=== PATIENT | female | born 1955 | race Caucasian/White ===

== ENCOUNTER 2018-08-06 09:52 | Emergency (ER) | payer OTHER ==
--- NOTE | 2018-08-06 10:23 | ED ---
General Adult HPI - General Chief complaint: Extremity Injury, Upper Stated complaint: Arm/shoulder injury-[facility] Time Seen by Provider: 08/06/18 10:06 Source: family, RN notes reviewed Mode of arrival: ambulatory Limitations: no limitations - History of Present Illness Initial comments: Patient is a 63-year-old female presented to the emergency room today with chief complaint of injury to the right shoulder that occurred earlier today. She does admit that she is getting a box of aspirin. From the shelf at work she felt a pop in the right shoulder. 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 She just felt that she was able to pop back in. She does admit that after she did that she felt some numbness to the volar aspect of the right forearm down to the fingertips. States feels like it is asleep. She does admit that she continued to work. She states that her work and wanted her to have it checked out she did go to urgent care. They did not have x-ray available and advised to come here to the emergency room for further evaluation of the right shoulder. Patient doesn't some tenderness to the right shoulder that is worse on palpation and certain movements. She denies any other complaints or symptoms. Patient denies any recent fever, chills, shortness of breath, chest pain, back pain, abdominal pain, nausea or vomiting, headaches or visual changes, or any other complaints. - Related Data Home Medications Medication Instructions Recorded Confirmed No Known Home Medications 08/06/18 08/06/18 Allergies Allergy/AdvReac Type Severity Reaction Status Date / Time Penicillins Allergy Anaphylaxis Verified 08/06/18 10:12 Review of Systems ROS Statement: Those systems with pertinent positive or pertinent negative responses have been documented in the HPI. ROS Other: All systems not noted in ROS Statement are negative. Past Medical History Past Medical History: Asthma History of Any Multi-Drug Resistant Organisms: None Reported Past Surgical History: Appendectomy, Cholecystectomy Additional Past Surgical History / Comment(s): Sinus, Throat Past Psychological History: No Psychological Hx Reported Smoking Status: Never smoker Past Alcohol Use History: None Reported Past Drug Use History: None Reported General Exam - General Exam Comments Initial Comments: General: The patient is awake and alert, in no distress, and does not appear acutely ill. Eye: There is normal conjunctiva bilaterally. No signs of icterus. Neck: The neck is supple, there is no tenderness or JVD. Musculoskeletal: Patient does have tenderness over the anterior aspect of the right shoulder. Sensations are intact to light touch. She does show good range of motion. She is able to touch the left shoulder with her right hand. Radial pulse 2+. Neurological: A&O x 3. CN II-XII intact, There are no obvious motor or sensory deficits. Coordination appears grossly intact. Speech is normal. Skin: Skin is warm and dry and no rashes or lesions are noted. Psychiatric: Cooperative, appropriate mood & affect, normal judgment. Limitations: no limitations Course Vital Signs 08/06/18 10:01 Temperature 97.6 F Pulse Rate 71 Respiratory 20 Rate Blood Pressure 125/65 O2 Sat by Pulse 99 Oximetry Medical Decision Making - Medical Decision Making X-ray reviewed and shows no dislocation or fracture. There is osteoarthritis around the acromioclavicular joint. Results were discussed with the patient. She has good range of motion. She does have some numbness sensation to the volar aspect. It is intact to light touch. She will be given an arm sling here in the emergency room she is advised follow-up with the orthopedic doctor over the next 2 days. Advised return here to the emergency room for any other concerns. Disposition Clinical Impression: Shoulder injury Disposition: HOME SELF-CARE Condition: Good Instructions (If sedation given, give patient instructions): Shoulder Dislocation (ED) Additional Instructions: Please use arm sling when up and moving around. Please use ibuprofen for pain. Please follow-up orthopedics over the next 2 days. Return here to emergency room for any other concerns. Is patient prescribed a controlled substance at d/c from ED?: No Referrals: Marquez Jesus MD [Primary Care Provider] - 1-2 days Barron Singh DO [Doctor of Osteopathic Medicine] - 1-2 days Time of Disposition: 11:18
--- NOTE | 2018-08-06 10:30 | XR ---
EXAMINATION TYPE: XR shoulder complete RT DATE OF EXAM: 08/06/2018 COMPARISON: NONE HISTORY: 63-year-old female with pain TECHNIQUE: 3 views FINDINGS: Mild degenerative spurring with capsular hypertrophy at the AC joint. Subacromial space is preserved. No tendinous or bursal calcifications. Smooth delineation to the greater tuberosity. No acute fractu re, subluxation, or dislocation. IMPRESSION: Mild AC joint OA. No acute osseous abnormality seen.
[2018-08-06 12:01] VITALS: BP 120/60; PULSE 70; RESP 18; TEMP 97.9
== END 2018-08-06 11:50 | disposition home or self-care (01) ==
LOC: EC 09:52
DX: S49.91XA Unspecified injury of right shoulder and upper arm, initial encounter (principal); M19.011 Primary osteoarthritis, right shoulder; Z88.0 Allergy status to penicillin; X50.9XXA Other and unspecified overexertion or strenuous movements or postures, initial encounter; Y92.69 Other specified industrial and construction area as the place of occurrence of the external cause; Y99.0 Civilian activity done for income or pay
CPT/HCPCS: 99283

== ENCOUNTER → 2018-08-16 | Outpatient (CLI) | payer OTHER ==
--- NOTE | 2018-08-16 21:42 | MR ---
EXAMINATION TYPE: MR shoulder RT wo con DATE OF EXAM: 08/16/2018 COMPARISON: None HISTORY: Rt shoulder pain, lifting injury CONTRAST: None Multiplanar, multiecho imaging on a 3.0 Nitza magnet is performed through the shoulder. Long head of the biceps tendon is within the bicipital groove. No significant joint effusion is evide nt. Glenoid labrum appears intact. Rotator cuff tendons are evaluated. There is fluid in subacromial and subdeltoid bursa. Fluid transv erses the supraspinatus tendon compatible with partial tear. No muscle or tendon retraction is eviden t. No muscle atrophy is evident. The acromioclavicular junction is hypertrophied which can contribute to impingement syndrome. IMPRESSIONS: 1. High-grade partial tear of the supraspinatus tendon without tendon or muscle retraction.
== END | disposition home or self-care (01) ==
LOC: RADMRIMAIN 20:09
PROVIDERS: ATTEND Emergency Medicine
DX: M75.111 Incomplete rotator cuff tear or rupture of right shoulder, not specified as traumatic (principal)

== ENCOUNTER → 2020-01-02 | Outpatient (CLI) | payer BC ==
--- NOTE | 2020-01-02 13:01 | CT ---
EXAMINATION TYPE: CT brain wo con DATE OF EXAM: 01/02/2020 HISTORY: Dizziness. CT DLP: 1177 mGycm. Automated Exposure Control for Dose Reduction was Utilized. TECHNIQUE: CT scan of the head is performed without contrast. COMPARISON: None FINDINGS: There is no acute intracranial hemorrhage, midline shift, or mass effect identified. There is beam monroy rdening artifact through the skull base Limited evaluation of the moni and medulla. The ventricles, sulci, and cisterns are normal in size and configuration. No extra-axial fluid collection. Bones and extracranial soft tissues are intact. The globes are gross ly symmetric. Mastoid air cells are clear. Mucosal thickening and surgical changes of the paranasal s inuses. IMPRESSION: No acute intracranial hemorrhage, midline shift, or mass effect.
== END | disposition home or self-care (01) ==
LOC: RADCTMAIN 11:53
PROVIDERS: ATTEND Nurse Practitioner Family
DX: R42 Dizziness and giddiness (principal)
CPT/HCPCS: 70450

== ENCOUNTER 2020-06-30 08:02 | Emergency (ER) | payer BC ==
[2020-06-30] MEDS ORDERED: ACETAMINOPHEN TAB 325 MG TAB PO STA (08:39)
[2020-06-30 09:06] LABS: Basophils % (A) 1 %; Eosinophils % (A) 1 %; HCT 37.4 % (34.0-46.0); HGB 12.6 gm/dL (11.4-16.0); Lymphocytes # (A) 0.5 k/uL (1.0-4.8); Lymphocytes % (A) 18 %; MCH 30.8 pg (25.0-35.0); MCHC 33.7 g/dL (31.0-37.0); MCV 91.5 fL (80.0-100.0); Mean Platelet Volume 7.8; Monocytes # (A) 0.2 k/uL (0-1.0); Monocytes % (A) 8 %; Neutrophils # (A) 1.8 k/uL (1.3-7.7); Neutrophils % (A) 71 %; Platelet Count 135 k/uL (150-450); RBC 4.09 m/uL (3.80-5.40); WBC 2.5 k/uL (3.8-10.6)
[2020-06-30 09:13] LABS: ALT 17 U/L (4-34); AST 30 U/L (14-36); African American GFR (CKD) >90 (>60 ml/min/1.73 sqM); Albumin 3.4 g/dL (3.5-5.0); Alkaline Phosphatase 56 U/L (38-126); Anion Gap 8 mmol/L; Blood Urea Nitrogen 11 mg/dL (7-17); Carbon Dioxide 26 mmol/L (22-30); Chloride 102 mmol/L (98-107); Glucose 122 mg/dL (74-99); Magnesium 1.8 mg/dL (1.6-2.3); Non-African American GFR(CKD) >90 (>60 ml/min/1.73 sqM); Potassium 3.6 mmol/L (3.5-5.1); Sodium 136 mmol/L (137-145); Total Bilirubin 0.2 mg/dL (0.2-1.3)
--- NOTE | 2020-06-30 09:15 | XR ---
EXAMINATION TYPE: XR chest 1V portable DATE OF EXAM: 06/30/2020 HISTORY: Shortness of breath. COMPARISON: None. TECHNIQUE: Single view of the chest is submitted. FINDINGS: Demonstrated are scattered senescent parenchymal change. Vague perihilar and basilar infiltrates suggested. The heart is stable. Hilar and mediastinal structures are within normal limits. Degenerative changes are seen of the dorsal spine. IMPRESSION: 1. Vague perihilar and basilar infiltrates suggested.
--- NOTE | 2020-06-30 09:17 | ED ---
General Adult HPI - General Chief complaint: Fever Stated complaint: possible covid Time Seen by Provider: 06/30/20 08:18 Source: patient Mode of arrival: wheelchair Limitations: no limitations - History of Present Illness Initial comments: 55-year-old female with a past medical history of asthma presents to the emergency room for a chief complaint of cough. Patient reports that for the past 5 days she has had a cough as well as body aches and chills. She does feel little short of breath. Denies chest pain. Patient reports that her tested positive for covid in the ER yesterday and got antibodies through the ER. Patient states she would like to be tested today as well.Patient has no other complaints at this time including chest pain, abdominal pain, nausea or vomiting, headache, or visual changes. - Related Data Home Medications Medication Instructions Recorded Confirmed No Known Home Medications 08/06/18 08/06/18 Allergies Allergy/AdvReac Type Severity Reaction Status Date / Time Penicillins Allergy Anaphylaxis Verified 06/30/20 08:13 Review of Systems ROS Statement: Those systems with pertinent positive or pertinent negative responses have been documented in the HPI. ROS Other: All systems not noted in ROS Statement are negative. Past Medical History Past Medical History: Asthma History of Any Multi-Drug Resistant Organisms: None Reported Past Surgical History: Appendectomy, Cholecystectomy Additional Past Surgical History / Comment(s): Sinus, Throat Past Psychological History: No Psychological Hx Reported Smoking Status: Never smoker Past Alcohol Use History: None Reported Past Drug Use History: None Reported General Exam Limitations: no limitations General appearance: alert, in no apparent distress Head exam: Present: atraumatic, normocephalic, normal inspection Eye exam: Present: normal appearance, PERRL, EOMI. Absent: scleral icterus, conjunctival injection, periorbital swelling ENT exam: Present: normal exam, mucous membranes moist Neck exam: Present: normal inspection, full ROM. Absent: tenderness, meningismus, lymphadenopathy Respiratory exam: Present: normal lung sounds bilaterally. Absent: respiratory distress, wheezes, rales, rhonchi, stridor Cardiovascular Exam: Present: regular rate, normal rhythm, normal heart sounds. Absent: systolic murmur, diastolic murmur, rubs, gallop, clicks GI/Abdominal exam: Present: soft, normal bowel sounds. Absent: distended, tenderness, guarding, rebound, rigid Course Vital Signs 06/30/20 06/30/20 06/30/20 08:11 09:14 10:03 Temperature 100.0 F H 98.5 F Pulse Rate 97 89 78 Respiratory 20 20 20 Rate Blood Pressure 98/62 80/67 96/56 O2 Sat by Pulse 94 L 94 L 90 L Oximetry EKG Findings - EKG Comments: EKG Findings:: Normal sinus rhythm, ventricular rate 75, HI interval 160, QTC 439 Medical Decision Making - Medical Decision Making Patient initially presents with a fever of 100.0. Oxygenation initially 94% which did decrease throughout her stay down to the high 80s. Blood pressure has also been low in the low 80s. This did improve after a liter and a half of fluid to 90s. CBC CMP unremarkable. CRP is sightly elevated likely secondary to coronavirus. Chest x-ray does show vague perihilar and basilar infiltrate suggestive. EKG shows a normal sinus rhythm with a ventricular rate of 75. Given hypoxia as well as hypotension patient will be admitted with steroids. Dr. Del Cid spoke with Dr. Elias. - Lab Data Result diagrams: 06/30/20 08:52 06/30/20 08:52 Lab Results 06/30/20 06/30/20 06/30/20 Range/Units 08:15 08:52 08:52 WBC 2.5 L (3.8-10.6) k/uL RBC 4.09 (3.80-5.40) m/uL Hgb 12.6 (11.4-16.0) gm/dL Hct 37.4 (34.0-46.0) % MCV 91.5 (80.0-100.0) fL MCH 30.8 (25.0-35.0) pg MCHC 33.7 (31.0-37.0) g/dL RDW 13.0 (11.5-15.5) % Plt Count 135 L (150-450) k/uL MPV 7.8 Neutrophils % 71 % Lymphocytes % 18 % Monocytes % 8 % Eosinophils % 1 % Basophils % 1 % Neutrophils # 1.8 (1.3-7.7) k/uL Lymphocytes # 0.5 L (1.0-4.8) k/uL Monocytes # 0.2 (0-1.0) k/uL Eosinophils # 0.0 (0-0.7) k/uL Basophils # 0.0 (0-0.2) k/uL Sodium 136 L (137-145) mmol/L Potassium 3.6 (3.5-5.1) mmol/L Chloride 102 (98-107) mmol/L Carbon Dioxide 26 (22-30) mmol/L Anion Gap 8 mmol/L BUN 11 (7-17) mg/dL Creatinine 0.63 (0.52-1.04) mg/dL Est GFR (CKD-EPI)AfAm >90 (>60 ml/min/1.73 sqM) Est GFR (CKD-EPI)NonAf >90 (>60 ml/min/1.73 sqM) Glucose 122 H (74-99) mg/dL Plasma Lactic Acid Pedro (0.7-2.0) mmol/L Calcium 8.0 L (8.4-10.2) mg/dL Magnesium 1.8 (1.6-2.3) mg/dL Total Bilirubin 0.2 (0.2-1.3) mg/dL AST 30 (14-36) U/L ALT 17 (4-34) U/L Alkaline Phosphatase 56 (38-126) U/L C-Reactive Protein 11.3 H (<10.0) mg/L Total Protein 6.0 L (6.3-8.2) g/dL Albumin 3.4 L (3.5-5.0) g/dL Coronavirus (PCR) Detected A (Not Detectd) 06/30/20 Range/Units 09:27 WBC (3.8-10.6) k/uL RBC (3.80-5.40) m/uL Hgb (11.4-16.0) gm/dL Hct (34.0-46.0) % MCV (80.0-100.0) fL MCH (25.0-35.0) pg MCHC (31.0-37.0) g/dL RDW (11.5-15.5) % Plt Count (150-450) k/uL MPV Neutrophils % % Lymphocytes % % Monocytes % % Eosinophils % % Basophils % % Neutrophils # (1.3-7.7) k/uL Lymphocytes # (1.0-4.8) k/uL Monocytes # (0-1.0) k/uL Eosinophils # (0-0.7) k/uL Basophils # (0-0.2) k/uL Sodium (137-145) mmol/L Potassium (3.5-5.1) mmol/L Chloride (98-107) mmol/L Carbon Dioxide (22-30) mmol/L Anion Gap mmol/L BUN (7-17) mg/dL Creatinine (0.52-1.04) mg/dL Est GFR (CKD-EPI)AfAm (>60 ml/min/1.73 sqM) Est GFR (CKD-EPI)NonAf (>60 ml/min/1.73 sqM) Glucose (74-99) mg/dL Plasma Lactic Acid Pedro 0.9 (0.7-2.0) mmol/L Calcium (8.4-10.2) mg/dL Magnesium (1.6-2.3) mg/dL Total Bilirubin (0.2-1.3) mg/dL AST (14-36) U/L ALT (4-34) U/L Alkaline Phosphatase (38-126) U/L C-Reactive Protein (<10.0) mg/L Total Protein (6.3-8.2) g/dL Albumin (3.5-5.0) g/dL Coronavirus (PCR) (Not Detectd) Disposition Clinical Impression: Hypotension, Hypoxia, COVID-19 Disposition: ADMITTED IP TO THIS HOSP Condition: Serious Is patient prescribed a controlled substance at d/c from ED?: No Referrals: Arden Ray MD [Primary Care Provider] - 1-2 days Time of Disposition: 10:41
[2020-06-30] MEDS ORDERED: SODIUM CHLORIDE 0.9% 1,000 ML IV STA (09:19)
[2020-06-30] MEDS ORDERED: SODIUM CHLORIDE 0.9% 500 ML 500 ML IV STA (09:19)
[2020-06-30 09:52] LABS: C Reactive Protein 11.3 mg/L (<10.0)
[2020-06-30] MEDS ORDERED: IBUPROFEN 400 MG TAB PO PRN (10:33)
[2020-06-30] MEDS ORDERED: ACETAMINOPHEN TAB 325 MG TAB PO PRN (10:33)
[2020-06-30] MEDS ORDERED: NALOXONE 0.4 MG/ML 1 ML VIAL IV PRN (10:33)
[2020-06-30] MEDS ORDERED: ALBUTEROL HFA INHALER INHALATION PRN (10:34)
[2020-06-30] MEDS ORDERED: SODIUM CHLORIDE 0.9% 1,000 ML IV SCH (10:45)
[2020-06-30] MEDS ORDERED: BAMLANIVIMAB (EUA) 700 MG, ETESEVIMAB (EUA) 1,400 MG in SODIUM CHLORIDE 0.9% 50 ML IVPB ONE (12:00)
[2020-06-30] MEDS ORDERED: SODIUM CHLORIDE 0.9% 50 ML IVPB ONE (12:23)
--- NOTE | 2020-06-30 12:54 | ED ---
Medical Decision Making - Lab Data Result diagrams: 06/30/20 08:52 06/30/20 08:52 Lab Results 06/30/20 06/30/20 06/30/20 Range/Units 08:15 08:52 08:52 WBC 2.5 L (3.8-10.6) k/uL RBC 4.09 (3.80-5.40) m/uL Hgb 12.6 (11.4-16.0) gm/dL Hct 37.4 (34.0-46.0) % MCV 91.5 (80.0-100.0) fL MCH 30.8 (25.0-35.0) pg MCHC 33.7 (31.0-37.0) g/dL RDW 13.0 (11.5-15.5) % Plt Count 135 L (150-450) k/uL MPV 7.8 Neutrophils % 71 % Lymphocytes % 18 % Monocytes % 8 % Eosinophils % 1 % Basophils % 1 % Neutrophils # 1.8 (1.3-7.7) k/uL Lymphocytes # 0.5 L (1.0-4.8) k/uL Monocytes # 0.2 (0-1.0) k/uL Eosinophils # 0.0 (0-0.7) k/uL Basophils # 0.0 (0-0.2) k/uL Sodium 136 L (137-145) mmol/L Potassium 3.6 (3.5-5.1) mmol/L Chloride 102 (98-107) mmol/L Carbon Dioxide 26 (22-30) mmol/L Anion Gap 8 mmol/L BUN 11 (7-17) mg/dL Creatinine 0.63 (0.52-1.04) mg/dL Est GFR (CKD-EPI)AfAm >90 (>60 ml/min/1.73 sqM) Est GFR (CKD-EPI)NonAf >90 (>60 ml/min/1.73 sqM) Glucose 122 H (74-99) mg/dL Plasma Lactic Acid Pedro (0.7-2.0) mmol/L Calcium 8.0 L (8.4-10.2) mg/dL Magnesium 1.8 (1.6-2.3) mg/dL Total Bilirubin 0.2 (0.2-1.3) mg/dL AST 30 (14-36) U/L ALT 17 (4-34) U/L Alkaline Phosphatase 56 (38-126) U/L C-Reactive Protein 11.3 H (<10.0) mg/L Total Protein 6.0 L (6.3-8.2) g/dL Albumin 3.4 L (3.5-5.0) g/dL Coronavirus (PCR) Detected A (Not Detectd) 06/30/20 Range/Units 09:27 WBC (3.8-10.6) k/uL RBC (3.80-5.40) m/uL Hgb (11.4-16.0) gm/dL Hct (34.0-46.0) % MCV (80.0-100.0) fL MCH (25.0-35.0) pg MCHC (31.0-37.0) g/dL RDW (11.5-15.5) % Plt Count (150-450) k/uL MPV Neutrophils % % Lymphocytes % % Monocytes % % Eosinophils % % Basophils % % Neutrophils # (1.3-7.7) k/uL Lymphocytes # (1.0-4.8) k/uL Monocytes # (0-1.0) k/uL Eosinophils # (0-0.7) k/uL Basophils # (0-0.2) k/uL Sodium (137-145) mmol/L Potassium (3.5-5.1) mmol/L Chloride (98-107) mmol/L Carbon Dioxide (22-30) mmol/L Anion Gap mmol/L BUN (7-17) mg/dL Creatinine (0.52-1.04) mg/dL Est GFR (CKD-EPI)AfAm (>60 ml/min/1.73 sqM) Est GFR (CKD-EPI)NonAf (>60 ml/min/1.73 sqM) Glucose (74-99) mg/dL Plasma Lactic Acid Pedro 0.9 (0.7-2.0) mmol/L Calcium (8.4-10.2) mg/dL Magnesium (1.6-2.3) mg/dL Total Bilirubin (0.2-1.3) mg/dL AST (14-36) U/L ALT (4-34) U/L Alkaline Phosphatase (38-126) U/L C-Reactive Protein (<10.0) mg/L Total Protein (6.3-8.2) g/dL Albumin (3.5-5.0) g/dL Coronavirus (PCR) (Not Detectd) Disposition Clinical Impression: COVID-19 Disposition: HOME SELF-CARE Condition: Good Instructions (If sedation given, give patient instructions): Fever in Adults (ED), Coronavirus Disease 2019 (COVID-19) Additional Instructions: Please follow-up with your doctor in one to 2 days. Return to the emergency r oom for any worsening symptoms such as shortness of breath Is patient prescribed a controlled substance at d/c from ED?: No Referrals: Arden Ray MD [Primary Care Provider] - 1-2 days Time of Disposition: 12:52
[2020-06-30 13:56] VITALS: BP 96/60; PULSE 77; RESP 16; TEMP 98.4
== END 2020-06-30 13:15 | disposition home or self-care (01) ==
LOC: EC 08:02 → UNDOADMIN 10:24 → 4SSUR 10:24 → EC 13:15
DX: U07.1 COVID-19 (principal); I95.9 Hypotension, unspecified; J45.909 Unspecified asthma, uncomplicated; Z88.0 Allergy status to penicillin
CPT/HCPCS: 36415; 71045; 80053; 83605; 83735; 85025; 86140; 87635; 93005; 96361; 96374; 96375; 99285

== ENCOUNTER → 2021-05-07 | Outpatient (CLI) | payer BC ==
--- NOTE | 2021-05-08 09:50 | CT ---
EXAMINATION TYPE: CT shoulder LT wo con DATE OF EXAM: 05/07/2021 COMPARISON: None HISTORY: Left shoulder pain, possible fracture CT DLP: 766.4 mGycm Automated exposure control for dose reduction was used. Contrast: None Technique: Axial images 2 mm thick sections. Reconstructed images in the coronal and sagittal plane. Three-D reconstructed images were obtained by the technologist on a separate computer and reviewed. FINDINGS: Very subtle avulsion at the greater tuberosity is present. This is best visualized series 3 image 63. Humeral head articulates with the glenoid. Some degenerative joint changes present. Acromioclavicular junction appears intact. No additional areas suspicious for fractures evident. IMPRESSION: 1. VERY SUBTLE AVULSION FRACTURE AT THE SUPERIOR GREATER TUBEROSITY LEFT HUMERUS.
== END | disposition home or self-care (01) ==
LOC: RADCTMAIN 07:40
PROVIDERS: ATTEND Orthopaedic Surgery
DX: S42.252A Displaced fracture of greater tuberosity of left humerus, initial encounter for closed fracture (principal)

== ENCOUNTER 2021-08-03 09:51 | Day surgery (SDC) | payer BC, MEDICARE ==
[2021-08-02 08:39] VITALS: BMI 42.4
[~2021-08-03 09:51] MED LIST: LACTATED RINGERS 1,000 ML IV SCH; LIDOCAINE 1% (10MG/ML) FOR IV START INTRADERMA PRN
[2021-08-03 10:33] VITALS: RESP 16; TEMP 97.9
[2021-08-03] MEDS ORDERED: PROPOFOL 10 MG/ML 20 ML VIAL IV ONE (11:43)
[2021-08-03] MEDS ORDERED: LIDOCAINE 2% INJ 20 MG/ML (2 ML VIAL) ONE (11:43)
--- NOTE | 2021-08-03 12:04 | P.PCN ---
Date of Procedure: 08/03/21 Procedure(s) Performed: BRIEF HISTORY: Patient is a 61-year-old pleasant 5 female scheduled for an elective colonoscopy as a part of evaluation of long-standing history of ulcerative colitis diagnosed 7 years ago when she was living in [place]. She was treated with steroids and mesalamine and then was in clinical remission for 2 years. She moved to this area recently and has been doing well. No diarrhea or rectal bleeding. Has not been on any maintenance medications at this time. PROCEDURE PERFORMED: Colonoscopy with random biopsy. PREOPERATIVE DIAGNOSIS: History of ulcerative colitis. IV sedation per Anesthesia. PROCEDURE: After informed consent was obtained, the patient, was brought into the endoscopy unit. IV sedation was administered by Anesthesia under continuous monitoring. Digital rectal examination was normal. Initially the Olympus CF-160 flexible video colonoscope was then inserted in the rectum, gradually advanced into the cecum without any difficulty. Careful examination was performed as the scope was gradually being withdrawn. Ileocecal valve and the appendiceal orifice were visualized and appeared normal. Prep was excellent. Mucosa of the cecum, ascending colon, transverse colon, descending colon, sigmoid colon, and rectum appeared normal. Scattered sigmoid diverticulosis. Random biopsies were done from the cecum to rectum at evidence of immediate into well to rule out dysplasia. Retroflexion was performed in the rectum and no lesions were seen. The patient tolerated the procedure well. IMPRESSION: Normal-appearing colon from rectum to cecum no evidence of colorectal neoplasia. Scattered sigmoid diverticulosis. RECOMMENDATIONS: Findings of this examination were discussed with the patient well as her family. She was advised to follow with the biopsy results. If the biopsies are negative she can have a repeat colonoscopy in 2 years.
[2021-08-03 12:26] VITALS: BP 128/85; PULSE 74
== END 2021-08-03 12:43 | disposition home or self-care (01) ==
LOC: ORWHC2ENDO 09:51
PROVIDERS: ATTEND Internal Medicine Gastroenterology
DX: Z12.11 Encounter for screening for malignant neoplasm of colon (principal); K57.30 Diverticulosis of large intestine without perforation or abscess without bleeding; Z87.19 Personal history of other diseases of the digestive system; J45.909 Unspecified asthma, uncomplicated; G43.909 Migraine, unspecified, not intractable, without status migrainosus; Z79.899 Other long term (current) drug therapy; Z88.0 Allergy status to penicillin; Z88.2 Allergy status to sulfonamides; Z90.49 Acquired absence of other specified parts of digestive tract; Z98.890 Other specified postprocedural states
CPT/HCPCS: 88305; 88313; 45380; J2704; J2001

== ENCOUNTER → 2021-09-12 | Outpatient (CLI) | payer MEDICARE ==
[2021-09-12 10:42] LABS: Basophils # (A) 0.02 X 10*3/uL (0.00-0.10); Basophils % (A) 0.3 %; Eosinophils # (A) 0.37 X 10*3/uL (0.04-0.35); Eosinophils % (A) 5.9 %; HCT 41.8 % (37.2-46.3); HGB 12.9 g/dL (12.0-15.0); Immature Grans, Automated 0.3 %; Lymphocytes # (A) 0.97 X 10*3/uL (0.90-5.00); Lymphocytes % (A) 15.6 %; MCH 29.7 pg (27.0-32.0); MCHC 30.9 g/dL (32.0-37.0); MCV 96.3 fL (80.0-97.0); Mean Platelet Volume 9.9 fL (9.5-12.2); Monocytes # (A) 0.51 X 10*3/uL (0.20-1.00); Monocytes % (A) 8.2 %; NRBC Per 100 WBC 0 /100 WBCS (0.0-0.0); Neutrophils # (A) 4.34 X 10*3/uL (1.80-7.70); Neutrophils % (A) 69.7 %; Platelet Count 299 X 10*3/uL (140-440); RBC 4.34 X 10*6/uL (4.10-5.20); RDW 13.6 % (11.5-14.5); WBC 6.23 X 10*3/uL (4.50-10.00)
[2021-09-12 11:15] LABS: ALT 19 U/L (8-44); AST 22 U/L (13-35); African American GFR (CKD) 110.6 (60.0-200.0); Albumin/Globulin Ratio 1.49 (1.60-3.17); Alkaline Phosphatase 72 U/L (41-126); BUN/Creat Ratio 18.54 Ratio (12.00-20.00); Blood Urea Nitrogen 11.2 mg/dL (9.0-27.0); Calcium 8.9 mg/dL (8.7-10.3); Carbon Dioxide 28.5 mmol/L (20.0-27.5); Chloride 104 mmol/L (96-109); Globulin 2.7 g/dL (1.6-3.3); Glucose 98 mg/dL (70-110); LDL Cholesterol,Calculated 137.8 mg/dL (0.0-131.0); Non-African American GFR(CKD) 95.4 (60.0-200.0); Potassium 4.2 mmol/L (3.5-5.5); Sodium 141 mmol/L (135-145); Total Protein 6.7 g/dL (6.2-8.2); VLDL Calculation 16.74 mg/dL (5.00-40.00)
== END | disposition home or self-care (01) ==
LOC: LABWHC1 07:47
PROVIDERS: ATTEND Physician Assistant Medical
DX: E66.9 Obesity, unspecified (principal); K52.9 Noninfective gastroenteritis and colitis, unspecified
CPT/HCPCS: 36415; 80053; 80061; 83036; 84439; 84443; 85025; 86850; 86900; 86901

== ENCOUNTER → 2021-10-03 | Outpatient (CLI) | payer MEDICARE ==
--- NOTE | 2021-10-06 10:23 | MM ---
Reason for Exam: Screening (asymptomatic). Last mammogram was performed 21 year(s) and 5 month(s) ago. Patient History: Menarche at age 13. Risk Values: Rena 5 year model risk: 1.2%. NCI Lifetime model risk: 4.6%. Prior Study Comparison: 01/06/1995 Screening Mammogram, Unknown. 05/18/2000 Bilateral Screening Mammogram, [facility]. Tissue Density: The breast tissue is almost entirely fat. Findings: Analyzed By CAD. There is no suspicious group of microcalcifications or new suspicious mass in either breast. Overall Assessment: Negative, BI-RAD 1 Management: Screening Mammogram of both breasts in 1 year. A clinical breast exam by your physician is recommended on an annual basis and results should be correlated with mammographic findings. Electronically signed and approved by: Billy Adam DO
== END | disposition home or self-care (01) ==
LOC: RADMAMWWP 13:38
PROVIDERS: ATTEND Family Medicine
DX: Z12.31 Encounter for screening mammogram for malignant neoplasm of breast (principal)
CPT/HCPCS: 77063; 77067

== ENCOUNTER → 2021-10-11 | Outpatient (CLI) | payer MEDICARE | LOC: CPPFTMAIN 08:19 | PROVIDERS: ATTEND Family Medicine | DX: J45.909 Unspecified asthma, uncomplicated (principal); Z88.0 Allergy status to penicillin; Z88.1 Allergy status to other antibiotic agents | CPT/HCPCS: 94060; 94726; 94729 ==

== ENCOUNTER → 2022-10-04 | Outpatient (CLI) | payer MEDICARE ==
--- NOTE | 2022-10-05 08:47 | MM ---
Reason for Exam: Screening (asymptomatic). Last screening mammogram was performed 12 month(s) ago. Patient History: Menarche at age 13. First Full-Term at age 36. Late child-bearing (after 30). Postmenopausal. Risk Values: Erna 5 year model risk: 2.3%. NCI Lifetime model risk: 8.2%. Prior Study Comparison: 01/06/1995 Screening Mammogram, Unknown. 05/18/2000 Bilateral Screening Mammogram, [facility]. 10/03/2021 Bilateral MG 3D screening mammo w/cad, [facility]. Tissue Density: There are scattered fibroglandular densities. Findings: Analyzed By CAD. There is no suspicious group of microcalcifications or new suspicious mass in either breast. Overall Assessment: Negative, BI-RAD 1 Management: Screening Mammogram of both breasts in 1 year. . Patient should continue monthly self-breast exams. A clinical breast exam by your physician is recommended on an annual basis. This exam should not preclude additional follow-up of suspicious palpable abnormalities. Note on Rena scores and lifetime risk: 1. A Rena score greater than 3% is considered moderate risk. If this is the case, consider specialist referral to assess eligibility for a risk reducing agent. 2. If overall lifetime risk for the development of breast cancer is 20% or higher, the patient may qualify for future screening with alternating mammogram and breast MRI. Electronically signed and approved by: Garcia Acevedo M.D. Radiologis
== END | disposition home or self-care (01) ==
LOC: RADMAMWWP 07:19
PROVIDERS: ATTEND Family Medicine
DX: Z12.31 Encounter for screening mammogram for malignant neoplasm of breast (principal); Z78.0 Asymptomatic menopausal state
CPT/HCPCS: 77063; 77067

== ENCOUNTER → 2023-07-30 | Outpatient (CLI) | payer MEDICARE ==
--- NOTE | 2023-07-30 19:41 | US ---
EXAMINATION TYPE: US arterial LE multi level DATE OF EXAM: 07/30/2023 4:22 PM CLINICAL INDICATION: Female, 68 years old with history of M79.609 PAIN IN UNSPECIFIED LIMB; left leg numbness History of: Smoker: Previous Hypertension: no Diabetic: no Hyperlipidemia: no TIA/CVA: no Previous Vascular Surgery: no CAD: no DE: no Vascular Ulcers: no Claudication: no Gangrene: no Doppler Waveforms: Right: Multiphasic Left: Multiphasic Ankle-Brachial Indices: Right: 1.07 Left: 1.22 (Vessel hardening > 1.4; Normal 0.9 - 1.4, Moderate 0.7 - 0.9, Severe 0.5-0.7) Toe Brachial Indices: Right: 0.72 Left: 0.85 IMPRESSION: Ankle-brachial indices within normal limits.
== END | disposition home or self-care (01) ==
LOC: RADUSWWP 15:50
PROVIDERS: ATTEND Family Medicine
DX: M79.605 Pain in left leg (principal); M79.604 Pain in right leg; R20.2 Paresthesia of skin
CPT/HCPCS: 93923